=== PATIENT | female | born 1950 | race Caucasian/White ===

== ENCOUNTER 2024-02-02 06:48 | Day surgery (SDC) | payer MEDICARE, OTHER, SELFPAY ==
[2024-02-02 13:41] VITALS: BMI 18.4
[2024-02-02 13:42] VITALS: BP 138/73; BMI 18.4
[2024-02-02 15:49] VITALS: BP 123/80
[2024-02-02 16:00] VITALS: BP 133/79
--- NOTE | 2024-02-02 16:00 | OR.RPT ---
Operative Report
Operative Report
DATE OF OPERATION: 02/02/2024
SURGEON: Wilner Diaz MD
PREOPERATIVE DIAGNOSIS: Fecal incontinence
POSTOPERATIVE DIAGNOSIS: Fecal incontinence
OPERATION: Endoanal ultrasound, colonoscopy (to be reported separately via provation)
ASSISTANTS:
1. Juan Sweet MD
ANESTHESIA: Sedation
FINDINGS:
1. Endoanal ultrasound evaluation of anal canal revealed a perineal body of 7.8 mm; apparent defect in the external anal sphincter of about 90 degrees anteriorly
SPECIMENS:
1. None
COMPLICATIONS: None
INDICATIONS: The patient is a 73-year-old female who has a history of pelvic pressure associated with fecal smearing. 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 Due to
her new onset pelvic symptoms, prolonged period since prior colonoscopy, and pelvic pressure, she was recommended for colonoscopy with endoanal ultrasound to evaluate for any anal sphincter defects. The procedure was discussed with the patient in
detail, including the risks, benefits and alternatives. Risks described included, but not limited to, bloating, bleeding, bowel perforation, inability to complete the procedure and missed lesions. The patient understood and agreed to proceed.
PROCEDURE IN DETAIL: The patient was taken to the endoscopy room and placed left lateral position. A timeout was performed verifying the correct patient, procedure, positioning and special equipment. Sedation was induced without complication.
I began the endoanal ultrasound. I inserted the lubricated rigid proctoscope sheath with obturator, then removed the obturator. I inserted the lubricated endoanal ultrasound until I felt resistance. I pulled the sheath back and clipped it into
place. I inflated the balloon until the lumen was flatly juxtaposed to the balloon. I then evaluated the distal rectum and anal canal by moving the crystal proximally and distally. I identified the levator ani sling and marked this as the proximal
anal canal. I identified the mid anal canal and marked this. I advanced the crystal and identified the distal anal canal and marked this. I then advanced the crystal back to the mid anal canal. There appeared to be a 90 degree defect in the
external anal sphincter oriented anteriorly. The internal anal sphincter was intact circumferentially. I took a picture and labeled this as 'question defect.' I then inserted a gloved finger in the distal vaginal canal and marked out the perineal
body, which measured 7.8 mm. The balloon was then desufflated and the sheath with endoanal ultrasound was removed.
I then performed the colonoscopy. This will be reported separately via probation. Findings of colonoscopy included redundant colon and 2 cm rectal polyp removed via EMR.
At this point, the procedure was complete. The patient was awoken without complication. The patient tolerated the procedure well and was transferred to the recovery room in stable condition.
Of note, Juan Sweet MD, city carrier assistant, was necessary during this procedure for assistance with performing the procedure as well as for assistance with interpreting the images. I was present for the entire duration of the case.
DICTATED BY: Wilner Diaz MD
[2024-02-02 16:15] VITALS: BP 147/75
[2024-02-02 16:28] VITALS: BP 145/70
== END 2024-02-02 16:42 | disposition home or self-care (01) ==
LOC: SDS 06:48
PROVIDERS: ATTENDING PHYSICIAN Surgery
DX: R15.9 Full incontinence of feces (principal); C44.99 Other specified malignant neoplasm of skin, unspecified; K62.89 Other specified diseases of anus and rectum; K57.30 Diverticulosis of large intestine without perforation or abscess without bleeding; D12.8 Benign neoplasm of rectum
CPT/HCPCS: 45385; 45381; 88305

== ENCOUNTER → 2024-06-13 13:29 | Outpatient (REF) | payer MEDICARE, OTHER, SELFPAY | LOC: WDC 13:29 | PROVIDERS: ATTENDING PHYSICIAN Obstetrics & Gynecology | DX: Z12.31 Encounter for screening mammogram for malignant neoplasm of breast (principal) | CPT/HCPCS: 77063; 77067 ==

== ENCOUNTER → 2024-09-14 14:22 | Outpatient (REF) | payer MEDICARE, OTHER, SELFPAY | LOC: RAD 14:22 | PROVIDERS: ATTENDING PHYSICIAN Physician Assistant Medical | DX: M81.0 Age-related osteoporosis without current pathological fracture (principal) | CPT/HCPCS: 77080 ==

== ENCOUNTER → 2025-06-21 14:10 | Outpatient (REF) | payer MEDICARE, OTHER, SELFPAY | LOC: WDC 14:10 | PROVIDERS: ATTENDING PHYSICIAN Obstetrics & Gynecology | DX: Z12.31 Encounter for screening mammogram for malignant neoplasm of breast (principal) | CPT/HCPCS: 77063; 77067 ==